=== PATIENT | female | born 2000 | race Caucasian/White ===

== ENCOUNTER → 2018-08-22 | Outpatient (CLI) | payer OTHER ==
[~2018-08-22] MED LIST: ACET325UDC; AMOX25SU PO; BIRTH CONTROL; Bactrim Ds Tab1 EACH PO; Keflex500 MG PO; PRED10 PO; Pyridium200 MG PO; RXAMOX250S PO
[2018-08-23 10:22] LABS: Candida species (DNA Probe) Negative (NEGATIVE); G. vaginalis (DNA Probe) Negative (NEGATIVE); T. vaginalis (DNA Probe) Negative (NEGATIVE)
== END | disposition home or self-care (01) ==
LOC: LAB 15:00 → LAB SHORT 15:00
PROVIDERS: Advanced Practice Midwife
DX: L29.8 Other pruritus (principal)
CPT/HCPCS: 87480; 87510; 87660

== ENCOUNTER → 2018-11-23 | Outpatient (CLI) | payer OTHER | END | disposition home or self-care (01) | LOC: LAB 19:16 → LAB SHORT 19:16 | DX: Z34.00 Encounter for supervision of normal first pregnancy, unspecified trimester (principal) | CPT/HCPCS: 87081; 87653 ==

== ENCOUNTER 2018-12-15 07:55 | Inpatient (IN) | payer OTHER ==
[~2018-12-15] VITALS: Ht 167.6 cm; Wt 81.1 kg
[2018-12-15] MEDS ORDERED: EXPECTA PRENAT1 EACH PO (08:26)
[2018-12-15] MEDS ORDERED: HEALTHY HEART1 EACH PO (08:27)
[2018-12-15] MEDS ORDERED: ONDA4 PO (08:27)
[2018-12-15 08:49] LABS: BASOPHILS ABSOLUTE AUTO 0.02 K/mm3 (0.00-0.23); BASOPHILS PERCENT AUTO 0 % (0-2); EOSINOPHILS ABSOLUTE AUTO 0.03 K/mm3 (0.00-0.68); EOSINOPHILS PERCENT AUTO 0 % (0-6); Hematocrit 36.5 % (33.0-51.0); Hemoglobin 12.2 g/dL (11.5-16.0); IMMATURE GRAN ABSOLUTE AUTO 0.08 K/mm3 (0.00-0.10); IMMATURE GRAN PERCENT AUTO 1 % (0-1); LYMPHOCYTES ABSOLUTE AUTO 2.38 K/mm3 (0.84-5.20); LYMPHOCYTES PERCENT AUTO 18 % (21-46); MONOCYTES ABSOLUTE AUTO 0.54 K/mm3 (0.16-1.47); MONOCYTES PERCENT AUTO 4 % (4-13); Mean Corpuscular HGB 28.8 pg (26.0-34.0); Mean Corpuscular HGB Conc 33.4 g/dL (31.5-36.5); Mean Corpuscular Volume 86 fL (80-100); Mean Platelet Volume 12.6 fL (9.1-12.4); NEUTROPHILS ABSOLUTE AUTO 9.99 K/mm3 (1.96-9.15); NEUTROPHILS PERCENT AUTO 77 % (41-73); NRBC ABSOLUTE 0.02 K/mm3 (0.00-0.02); NRBC Auto 0.2 /100 WBC (0.0-0.2); Platelet Count 206 K/mm3 (150-400); RDW Coefficient Variation 13.2 % (11.7-14.2); RDW Standard Deviation 40.3 fL (35.1-46.3); Red Blood Cell Count 4.24 M/mm3 (3.80-5.20); White Blood Cell Count 13.04 K/mm3 (4.00-11.30)
--- NOTE | 2018-12-15 17:56 | NUR ---
IV TEGAGDERM REINFORCED CUT PART WAY AND WRAPPED WITH KERLEX, PT KEEPS PICKING AT TAPE. RN HAS TOLD PT 2 TIMES WHY SHE HAS TO LEAVE IV IN.
--- NOTE | 2018-12-15 18:06 | NUR ---
arrived by private vehicle. FAMILY MEMBER RANG DOORBELL STATING PATIENT WILL DELIVER IN THE CAR. RN OUT TO ENTRANCE. PATIENT WALKING IN. ASSISTED INTO W/C AND TAKEN TO ROOM. CERVIX 3 CM. NOTIFIED Steve LECHUGA OF ADMIT
--- NOTE | 2018-12-15 18:06 | NUR ---
[place] [id number], pt anxious about going to see nb in [facility], worried we will mix it up with someones else's, reasssured her that would not happen as there is only her baby in the nursery and thats is why they have matching armbands. Pt can't remember why she has to wait in bed for IVF to be done, and her bleeding has picked up and RN wasn't confortable getting pt up get and shower with her leg not working well either. lots of teaching, mulitple times. pt has genuine care towards nb, but very anxious about transport of nb. MD was just in room and said that wasn't happening yet, pt just can't move on from being worried about it. when pt was alone in room, I asked about safety at home, she staes she feels safe. discussed FOB, who is not here, she stated she wasn;t sure that he is the father, so I told her we wouldn't paternity papers unless she wanted, she said no. Pt itching her perineium, instructed mulitple times to stop to not spread infection. C/O soreness in bottom, reassured that this is normal. After pt voided and was helped to shower, pt to to [facility]. Report to Casey at 1730, with instructions to have pt to start to pump. I had already told pt she need to start while NB was in [facility].
--- NOTE | 2018-12-15 18:13 | NUR ---
0900 PATIENT REFUSES MOST INTERVENTIONS, CONTINOUS MONITORING, VITAL SIGNS, INITALLY IV START. PATIENT ASKS THE SAME QUESTIONS REPEATEDLY. MINIMALLY COOPERATIVE WITH CARE
--- NOTE | 2018-12-15 18:53 | NUR ---
REPORT TO ONCOMING SHIFT
--- NOTE | 2018-12-15 20:18 | NUR ---
AMBULATION TO BATHROOM PT AMBULATED WITH LITTLE ASSISTANCE. PT C/O LEFT LEG STILL FEELING TINGLY. RN ASSISTED PT TO BATHROOM AND BACK TO BED. PT TOLERATED WELL. EDUCATED PT TO CALL WHEN WANTS TO GET OOB R/T LEFT LEG TINGLING. PT C/O BURNING ON THE ANGIE AND LABIAL REPAIRS. ASSITED PT WITH PREPPING PADS, EDUCATED PT ON HOW TO APPLY THE ANGIE MEDS AND PADS. PT C/O OF THE ANGIE SPRAY BURNING. RN OFFERED ICE DIAPER TO SOOTH ANGIE AREA. PT ANXIOUS AT THIS TIME. PT ASKING WHEN IV CAN BE DC, EDUCATED PT THAT PROTOCOL TO LEAVE IN 24 HOURS AFTER EPIDURAL. PT STATED BEING OK WITH IV STAYING IN. PT DENIES ANY OTHER NEEDS AT THIS TIME AND WILL CALL IF NEEDS ANY OTHER ASSISTANCE.
--- NOTE | 2018-12-15 22:08 | NUR ---
PT ABLE TO AMBULATE INDEPENDENTLY FROM NURSERY TO ROOM 128. PT STATES SHE HAS FULL FEELING IN HER LEGS. STEADY GAIT NOTED. PT BACK TO ROOM AND SET UP BREAST PUMP INDEPENDENTLY. PT VERBALIZED UNDERSTANDING OF PUMPING FOR 15 MIN. PT PAINFUL IN PERINEUM. PERINEUM CHECKED AND APPEARS WNL. PT USING ANGIE MEDS APPROPRIATELY.
[2018-12-16 05:43] LABS: Hematocrit 32.6 % (33.0-51.0); Hemoglobin 10.9 g/dL (11.5-16.0); Mean Corpuscular HGB 29.1 pg (26.0-34.0); Mean Corpuscular HGB Conc 33.4 g/dL (31.5-36.5); Mean Corpuscular Volume 87 fL (80-100); Mean Platelet Volume 12.2 fL (9.1-12.4); Platelet Count 142 K/mm3 (150-400); RDW Coefficient Variation 13.2 % (11.7-14.2); RDW Standard Deviation 41.5 fL (35.1-46.3); Red Blood Cell Count 3.75 M/mm3 (3.80-5.20); White Blood Cell Count 10.72 K/mm3 (4.00-11.30)
--- NOTE | 2018-12-16 07:45 | NUR ---
pt sleeping when RN delivered breakfast tray. Open eyes but did not interact with nurse. Will check back shortly and assess when pt awake.
--- NOTE | 2018-12-16 11:50 | NUR ---
Pt up in nursery, nb.
--- NOTE | 2018-12-16 15:43 | NUR ---
Pt in nursery w/her grandmother. Ambulated independently, w/o difficulty.
--- NOTE | 2018-12-16 15:53 | NUR ---
CHILDREN SERVICES SEE CHILDREN SERVICE COMMENT AT 1340 REGARDING THE FACETIME CONVERSATION WITH THE FOB HOMER TURNER.
--- NOTE | 2018-12-17 00:01 | NUR ---
ANGIE CHECK PT ASKED TO CHECK ANGIE REPAIRS. PT STATED SHE FELT SHE MAY HAVE SCRATCHED A STITCH OPEN. RN CHECKED ANGIE AREA STITCHES. REPAIR IS APPROXIMATED WITH NO BLEEDING ON STITCHES. NO APPARENT BROKEN STITCH. RN OFFERED ICE DIAPER. PT REFUSED. PT DENIES ANY OTHER NEEDS AT THIS TIME. NB IN OPEN CRIB SLEEPING BACK TO SLEEP.
--- NOTE | 2018-12-17 01:32 | NUR ---
BREAST PUMPING PT DEMONSTRATED EFFECTIVE BREAST PUMPING. PUMPED 20 CC OF BREAST MILK. TO FEED AT THE 0200 FEED.
--- NOTE | 2018-12-17 08:05 | NUR ---
ASSUMED CARE PT SITTING UP NAKED IN BED. STATES SHE JUST GOT DONE PUMPING. PATIENT VERY FLAT AND WITHDRAWN. NO QUESTIONS ASKED AND VERY LIMITED EYE CONTACTION. PATIENT STATES SHE IS TIRED AND DIDNT GET MUCH SLEEP. FOB AT BEDSIDE. HE CONTINUES TO GO IN AND OUT OF THE UNIT AT A FAST PACE OF SPEED VERY FREQUENTLY. ENCOURAGED MOTHER TO GET HER PAPERWORK DONE TODAY SINCE SHE MAY GO HOME THIS AFTERNOON. ONLY THING SHE ASKED WAS IF THE BABY GOT TO GO HOME WITH HER. WILL KEEP CLOSE OBSERVATION WITH FEEDS AND CARE.
[2018-12-17] MEDS ORDERED: IBUP800 PO (08:11)
--- NOTE | 2018-12-17 08:21 | NUR ---
CORE CORE REFERALL FORM FAXED FOR IMMEDIATE FOLLOW UP AT HOME.
--- NOTE | 2018-12-17 09:39 | NUR ---
ARGUMENT WHILE SITTING AT NURSE TRIM MASTER OPERATOR CHARTING I OVERHEARD RENAY AND HOMER FIGHTING. THERE WAS LOTS OF CURSE WORDS AND YELLING ABOUT RENAY BEING TIRED AND WANTING TO SLEEP AND HOMER WASNT DOING ANYHTING TO HELP HER. SHE STATED ALL HE HAS DONE WAS SLEEP AND NOW IT WAS HER TURN. YOU COULD HEAR RENAY CRYING FROM THE HALLWAY. ONCE THE ROOM WAS QUIET I CHECKED IN AND THE BABY WAS ASLEEP ON HIS BACK IN THE CRIB, RENAY WAS SITTING UP ON HER PHONE AND HOMER WAS ASLEEP ON THE COUCH. RENAY STATES EVERYTHING WAS FINE AND THERE WAS NOTHING THAT SHE NEEDED.
--- NOTE | 2018-12-17 11:35 | NUR ---
BIG ARGUMENT 1020 ELIEL LOREDO SHOWED UP AND MOHAN FRIEND IS AT THE DOOR AND CAME IN WITH HER. UPON ENTERING RENAY SAID SHE DIDNT WANT ANY OF HIS FRIENDS HERE. HOMER IS SLEEPING AND HASNT WOKE UP. IMMEDIATELY HOMER GOT MAD AND LOUD YELLING WAS HEARD FROM THE HALLWAY. MYSELF AND ISAI SEISMOGRAPH SHOOTER IMMEDIATELY WENT IN. THINGS WERE ESCALATING AND ALL 3 WERE STANDING IN THE ROOM YELLING. RENAY WAS YELLING WANTING GERTRUDE TO GET OUT OF THE ROOM AND HOMER WAS YELLING AT HER WELL. IMMEDIATELY SECURITY WAS CALLED TO COME STAT AND ELIEL LOREDO GRABBED THE BABY AND GAVE HIM TO ME VERY FAST IN THE HALLWAY SAYING HURRY TAKE THE BABY HE IS GOING TO GET HURT. I TOOK THE BABY TO THE NURSES STATION AND ISAI GALAN REMAINED IN THE HALLWAY. HOMER SAID COME ON RENAY WE SHOULD JUST GRAB THE BABY AND LEAVE NOW. 1030 SECURITY ARRIVED AND HOMER WAS VERY MUCH OUT OF CONTROL. CUSSING AND YELLING AT SECURITY. FINALLY HE WAS ASKED TO LEAVE BC HE WASNT COOPERATING AND RENAY WAS YELLING SAYING NO SHE WANTED HIM TO STAY. RENAY KEPT PUTTING HER HANDS ON HER HEAD, PULLING AT HER GOWN, AND PUTTING HANDS IN A FIST SHE WAS GETTING MADDER AND MADDER. MOHAN WAS ESCORTED OFF THE UNIT WITH HIS MOTHER MONCHO. RENAY WITH HANDS IN A FIST SAID WHERE ARE THEY GOING AND WHERE IS HER BABY. I EXPLAINED HER BABY IS SAFE IN THE NURSERY AND SHE NEEDS TO CALM DOWN AND GET COMPOSED TO HOLD THE BABY BC THAT WAS VERY UNSAFE AND WE ARE VERY WORRIED ABOUT THE BABIES SAFETY. SHE LEFT THE UNIT AND STATES SHE HAS TO GO SEE WHAT IS GOING ON WITH HOMER. 1040 DR LEVY CALLED AND UPDATED ON SITUATION AND EXPRESSED CONCERNED WITH THIS BABY LEAVING WITH THIS MOM AND DAD. WILL KEEP BABY IN NURERY AT THIS TIME BUT NEED TO GET CHILDRENS SERVICES HERE TODAY. 1050 ELIEL LOREDO CAME BACK IN TO TALK WITH ME. SHE SAID RENAY DOES NOT LIVE WITH HER BUT JUST MOVED SOME STUFF IN HER HOUSE TODAY FOR RENAY AND THE BABY TO COME. SHE SAID "RENAY IS GOING TO KILL THIS BABY. I AM JUST SO WORRIED" SHE SAID SHE IS MENTALLY UNSTABLE AND GAVE ME AN EXPAMPLE SAYING ABOUT 6 MONTHS AGO RENAY POOPED IN HER OWN HAND AND WIPED IT ALL OVER GERTRUDE AND HER HOUSE. GERTRUDE SAYS SHE HAS A RESTRAINING ORDER AGAIN HOMER AND HE CANT COME CLOSE TO HER HOUSE WHICH IS WHY SHE WANTS THE BABY TO COME THERE SO SHE CAN PROTECT HIM AT HER HOUSE. SHE WOULD LIKE THIS FAMILY THAT SHE KNOWS TO JUST ADOPTED THIS BABY SO HE IS SAFE. I THANKED HER FOR HER INFORMATION AND SHE LEFT THE UNIT. GERTRUDE CEVALLOS [phone]. 1055 RENAY BACK ON UNIT AND COMES TO DESK WITH SECURITY STILL PRESENT AND DEMANDED TO SEE HER BABY. SHE WAS STILL VERY WORKED UP AND ANXIOUS AND TEARFUL. I EXPLAINED THAT WE WANTED TO MAKE SURE SHE WAS SETTLED DOWN ENOUGH TO SAFELY HOLD HER BABY. SHE ASKED WHEN HER DOCTOR WAS COMING AND NEEDING SOME ANXIETY MEIDCATION RIGHT NOW. I TOLD HER WE WOULD CALL HER AND SEE IF SHE COULD COME IN TO SEE HER. I SAID FOR NOW SHE CAN GO TO NURSERY BUT SECURITY WOULD HAVE TO BE IN THERE WITH HER BC WE ARE VERY WORRIED ABOUT THIS SAFETY OF THIS CHILD. RENAY SAID THAT SHE WOULD LIKE A NEW NURSE NOW. 1055 24 HOUR HOT LINE CALLED AND SPOKE TO YUN. EXPLAINED THE ENITRE SITUATION AND STATED THE PRESSURE CONTROLLER DR LEVY WOULD LIKE SOMEONE HERE TODAY TO MAKE A PLAN FOR THIS BABY BECAUSE SHE CANT DISCHARGE IT WITH THE MOM. OVIDIO IS THE ONCALL TESTING SHAKING SHIPPING THIS WEEKEND AND WOULD BE CALLING ME BACK SHORTLY. 1130. OVIDIO FROM CHILDREN SERVICES CALLED. ENTIRE STORY AND BACKGROUND WAS GIVEN. SHE WILL CALL HER TOBACCO DIPPER AND BE IN TO SEE THE MOTHER TO MAKE A PLAN. 1145 OVIDIO CALLED BACK AND IS ON WAY NOW AND WILL CALL ELIEL LOREDO TO TALK WITH HER. PLAN TO LET BABY ROOM IN WITH MOTHER AT THIS TIME SO WE CAN OBSERVE THE CARE THAT SHE PROVIDES FOR THIS BABY. GISELA HAYES UPDATED AND ASSUMED CARE.
--- NOTE | 2018-12-17 16:42 | NUR ---
rn walked in on phone call with clarice. pt hung up. clarice was having to conversations at once and didnt sound good. pt is very anxious, pt mo and grandma are at bedside, pt grandma heard the conservation
--- NOTE | 2018-12-17 16:52 | NUR ---
CALLED CPS WORKER MAURA TO CALL PT GRANDMA TO TALK TO FAMILY, PT IS CRYING OVER CONSERVATION WITH GERTRUDE ON PHONE, RN DIDNT REALLY HEAR ENOUGH, PT ANXIOUS. CPS WORKER IS TALKING TO PT NOW ON SPEAKER WITH HER MOM AND GRANDMA PRESENT, REPORT TO DWAYNE HAYES
--- NOTE | 2018-12-17 17:00 | NUR ---
ASSUMED CARE. PT IN ROOM PUMPING. WILL LET RN KNOW WHEN READY TO LEAVE. FAMILY AT BEDSIDE HELPING PACK BELONGINGS UP
--- NOTE | 2018-12-17 17:00 | NUR ---
lucila called back from cps, reports that it is still a go for going to [facility] for tonight, pt mom and grandma are ok for pt and baby to be with them also. cps will get in touch with pt tomorrow.
--- NOTE | 2018-12-17 18:00 | NUR ---
DIAPER CHANGED BY MOM. BANDS MATCHED. INFANT IN CARSEAT. MOM AND DISCHARGED TO HOME, WALKED TO CAR. LEAVING WITH BUDDY.
== END 2018-12-17 18:00 | disposition home or self-care (01) | DRG 806 ==
LOC: OBS 07:55 → BC 07:58
PROVIDERS: ADMIT Advanced Practice Midwife
PROC: 10E0XZZ Delivery of Products of Conception, External Approach (ICD-10-PCS; principal; 2018-12-15)
PROC: 0KQM0ZZ Repair Perineum Muscle, Open Approach (ICD-10-PCS; 2018-12-15)
PROC: 0UQMXZZ Repair Vulva, External Approach (ICD-10-PCS; 2018-12-15)
PROC: 3E0S3BZ Introduction of Anesthetic Agent into Epidural Space, Percutaneous Approach (ICD-10-PCS; 2018-12-15)
PROC: 00HU33Z Insertion of Infusion Device into Spinal Canal, Percutaneous Approach (ICD-10-PCS; 2018-12-15)
DX: O98.82 Other maternal infectious and parasitic diseases complicating childbirth (principal); O99.324 Drug use complicating childbirth; Z37.0 Single live birth; B95.1 Streptococcus, group B, as the cause of diseases classified elsewhere; F12.20 Cannabis dependence, uncomplicated; F42.4 Excoriation (skin-picking) disorder; Z3A.39 39 weeks gestation of pregnancy
CPT/HCPCS: 36415; 51702; 85025; 85027; J0290; J1885; J2405; J2590; J3010; J7120

== ENCOUNTER → 2019-01-11 | Outpatient (CLI) | payer OTHER ==
[~2019-01-11] MED LIST changes: +EXPECTA PRENAT1 EACH PO; +HEALTHY HEART1 EACH PO; +IBUP800 PO; +ONDA4 PO
[2019-01-12 10:04] LABS: Candida species (DNA Probe) Positive (NEGATIVE); G. vaginalis (DNA Probe) Negative (NEGATIVE); T. vaginalis (DNA Probe) Negative (NEGATIVE)
== END | disposition home or self-care (01) ==
LOC: LAB 11:55 → LAB SHORT 11:55
PROVIDERS: Advanced Practice Midwife
DX: L29.8 Other pruritus (principal)
CPT/HCPCS: 87480; 87510; 87660